=== PATIENT | female | born 1940 | race Caucasian/White ===

== ENCOUNTER 2016-07-03 17:28 | Emergency (ER) | payer MEDICARE, OTHER ==
[2016-07-03 18:18] LABS: ABSOLUTE EOSINOPHILS # (AUTO) 0.1 10^3/uL (0.0-0.6); ABSOLUTE LYMPHOCYTES (AUTO) 1.1 10^3/uL (0.5-4.7); ABSOLUTE MONOCYTES (AUTO) 0.5 10^3/uL (0.1-1.4); ABSOLUTE NEUT (AUTO) 6.7 10^3/uL (1.7-8.2); BASOPHILS % (AUTO) 0.3 % (0-2); EOSINOPHILS % (AUTO) 1.7 % (0-6); HEMOGLOBIN 11.7 g/dL (12.0-15.5); HGB HCT DIFFERENCE -1.9; LYMPHOCYTES % (AUTO) 13.5 % (13-45); MEAN CORPUSCULAR HEMOGLOBIN 29.2 pg (27.0-33.4); MEAN CORPUSCULAR HGB CONC 31.7 g/dL (32.0-36.0); MEAN CORPUSCULAR VOLUME 92 fl (80-97); MONOCYTES % (AUTO) 6.2 % (3-13); RED BLOOD COUNT 4.02 10^6/uL (3.72-5.28); RED CELL DISTRIBUTION WIDTH 14.7 % (11.5-14.0); SEGMENTED NEUTROPHILS % (AUTO) 78.3 % (42-78); WHITE BLOOD COUNT 8.5 10^3/uL (4.0-10.5)
[2016-07-03 18:46] LABS: ALANINE AMINOTRANSFERASE 25 U/L (9-52); ALBUMIN 3.8 g/dL (3.5-5.0); ALKALINE PHOSPHATASE 74 U/L (38-126); ANION GAP 11 (5-19); ASPARTATE AMINO TRANSFERASE 30 U/L (14-36); BILIRUBIN,TOTAL 0.8 mg/dL (0.2-1.3); BLOOD UREA NITROGEN 15 mg/dL (7-20); CALCIUM 9.1 mg/dL (8.4-10.2); CARBON DIOXIDE 26 mmol/L (22-30); CHLORIDE 104 mmol/L (98-107); CREATININE RESULT 0.73 mg/dL (0.52-1.25); GLUCOSE 115 mg/dL (75-110); POTASSIUM 3.9 mmol/L (3.6-5.0); TOTAL PROTEIN 6.3 g/dL (6.3-8.2)
--- NOTE | 2016-07-03 18:48 | ER Document Report ---
ED General - General Chief Complaint: Passed Out Prior to Arrival Stated Complaint: WEAKNESS Time seen by provider: 17:50 Mode of Arrival: Medic Information source: Relative, Friend Cannot obtain history due to: Dementia Notes: 76-year-old female resident of memory care unit at [facility] who is with daughter and friend at dinner and was witnessed to have an episode where she seemed to have some gurgling became pale and diaphoretic and unresponsive for a few months. Patient did not follow strike her head and after few seconds became alert and did not know what happened. Family reports that she is currently behaving at her baseline. They report that over the past several weeks she's had a decline in her level of interaction and has had some decrease in her appetite. They report that she would complain if she was having any pain and has had no such complaints. There are on she's had no fever, cough, shortness of breath, nausea, vomiting. Family reports that to their knowledge she's not had any surgeries and does not have any medical problems other than Alzheimer's Physical Exam: General: Alert, appears well. HEENT: Normocephalic. Atraumatic. PERRLA. Discs sharp Extraocular movements intact. Oropharynx clear. Membranes moist Neck: Supple. Non-tender. No JVD Respiratory: No respiratory distress. Clear and equal breath sounds bilaterally. Cardiovascular: Bradycardic and regular no murmur PMI not displaced. Abdominal: Normal Inspection. Soft, non-tender. No distension. Normal Bowel Sounds. Back: Non-tender. No deformity or step off. Extremities: Moves all four extremities. Upper extremities: Normal inspection. Non-tender. Normal color. Normal ROM. Normal temperature. Lower extremities: Normal inspection. Non-tender. No edema. Normal color. Normal ROM. Normal temperature. No Homans sign bilaterally Neurological: No cranial nerve deficits appreciated. Speech clear. Patient is oriented to person and place. Emergency Medicine Specialist strength 5 out of 5 equal both upper extremities motor function 5 out of 5 equal both lower extremities Psychological: Normal affect. Normal Mood. Pleasantly confused Skin: Warm. Dry. Normal color. Past Medical History - General Cannot obtain history due to: Dementia - Social History Smoking Status: Never Smoker Family History: Other - Dementia Review of Systems - Review of Systems Constitutional: No symptoms reported EENT: No symptoms reported Cardiovascular: Syncope Respiratory: Cough Gastrointestinal: denies: Nausea, Vomiting Genitourinary: Incontinence - With this episode tonight Musculoskeletal: No symptoms reported Hematologic/Lymphatic: No symptoms reported Neurological/Psychological: No symptoms reported Physical Exam - Vital signs Vitals: Temp Pulse Resp BP Pulse Ox 97.6 F 47 L 20 111/36 L 100 07/03/16 17:39 07/03/16 17:39 07/03/16 17:39 07/03/16 17:39 07/03/16 17:39 Course - Re-evaluation Re-evalutation: 07/03/16 19:28 Patient has remained asymptomatic during her stay in the emergency department. Her EKG shows a sinus bradycardia but believe this is physiologic and family reports that she is not on any medications. Daughter reports the patient has DO NOT RESUSCITATE status and in view of that and her dementia I do not believe that any further workup is warranted at this point. I find no evidence for aspiration with this episode. I discussed with family that I do not find a clear explanation for her syncopal episode but they're comfortable with stopping the workup at this point - Vital Signs Vital signs: Temp Pulse Resp BP Pulse Ox 97.6 F 47 L 19 111/36 L 99 07/03/16 17:39 07/03/16 17:39 07/03/16 19:01 07/03/16 17:39 07/03/16 19:01 - Laboratory Result Diagrams: 07/03/16 17:45 07/03/16 17:45 Laboratory results interpreted by me: 07/03/16 07/03/16 17:45 17:45 Hgb 11.7 L MCHC 31.7 L RDW 14.7 H Seg Neutrophils % 78.3 H Glucose 115 H - Diagnostic Test Radiology reviewed: Image reviewed, Reports reviewed - EKG Interpretation by Me Additional EKG results interpreted by me: 07/03/16 19:28 EKG reviewed, so shows sinus bradycardia at 48 with no acute changes Discharge - Discharge Clinical Impression: Syncope Qualifiers: Syncope type: unspecified Qualified Code(s): R55 - Syncope and collapse Dementia Qualifiers: Dementia type: unspecified type Condition: Stable Disposition: HOME-ASSISTED LIVING Additional Instructions: Syncopal Episode Syncope (fainting or near-fainting) can occur from many different health problems. Or it can be a simple fainting spell requiring no treatment. It is safe for you to go home, but further evaluation will likely be necessary. Your work-up may include tests for internal bleeding, heart disease, medication problems, or near-strokes. Tests are not always required, however, depending on the nature of your problem. The warning signs of an impending faint include: dizziness, lightheadedness , nausea, hot flashes, tingling, and weakness. If this happens, lay down and put your feet up, then wait until all of these symptoms have passed before standing up again. If these episodes become recurrent, or if you develop chest pain, heart palpitations, mental confusion, blurred vision, or headache, then you should call the physician, or go to the emergency room. Referrals: STU MICHAELS MD [COMMUNITY BASED STAFF] - Follow up in 1 week
[2016-07-03] MEDS ORDERED: HALOPERIDOL LACTATE INJ 5 MG/1 ML VIAL ONE (20:44)
[2016-07-03] MEDS ORDERED: DIPHENHYDRAMINE HCL 50 MG/ML VIAL ONE (20:45)
[2016-07-03 22:24] VITALS: BP 128/68
--- NOTE | 2016-07-04 08:13 | EKG REPORT ---
SEVERITY:- ABNORMAL ECG - SINUS BRADYCARDIA PROBABLE LEFT ATRIAL ABNORMALITY NONSPECIFIC T ABNORMALITIES, ANTERIOR LEADS : Confirmed by: Sergey Locke MD 04-Jul-2016 08:12:59
== END 2016-07-03 21:00 | disposition home health service (06) ==
LOC: ER 17:28
DX: R55 Syncope and collapse (principal); F03.90 Unspecified dementia, unspecified severity, without behavioral disturbance, psychotic disturbance, mood disturbance, and anxiety; R53.1 Weakness
CPT/HCPCS: 36415; 70450; 71010; 80053; 85025; 93005; 93010; 99285

== ENCOUNTER 2017-12-12 09:10 | Inpatient (IN) | payer MEDICARE ==
--- NOTE | 2017-12-12 10:07 | RADIOLOGY REPORT (SQ) ---
EXAM DESCRIPTION: CHEST SINGLE VIEW COMPLETED DATE/TIME: 12/12/2017 9:55 am REASON FOR STUDY: fefer COMPARISON: 07/03/2016 EXAM PARAMETERS: NUMBER OF VIEWS: One view. TECHNIQUE: Single frontal radiographic view of the chest acquired. RADIATION DOSE: NA LIMITATIONS: None. FINDINGS: LUNGS AND PLEURA: Minimal parenchymal opacity at the left base. Right lung is clear. MEDIASTINUM AND HILAR STRUCTURES: No masses. Contour normal. HEART AND VASCULAR STRUCTURES: Heart normal in size. Normal vasculature. BONES: No acute findings. HARDWARE: None in the chest. OTHER: No other significant finding. IMPRESSION: Left basilar pneumonitis. TECHNICAL DOCUMENTATION: JOB ID: [id number] [facility]- All Rights Reserved Reading location - IP/workstation name: [email or web address]
[2017-12-12] MEDS ORDERED: HALOPERIDOL LACTATE INJ 5 MG/1 ML VIAL IM ONE (10:09)
[2017-12-12] MEDS ORDERED: LORAZEPAM INJ 2 MG/1 ML VIAL IM ONE (11:01)
[2017-12-12 11:53] LABS: ABSOLUTE LYMPHOCYTES (AUTO) 0.8 10^3/uL (0.5-4.7); ABSOLUTE MONOCYTES (AUTO) 0.7 10^3/uL (0.1-1.4); ABSOLUTE NEUT (AUTO) 11.8 10^3/uL (1.7-8.2); BASOPHILS % (AUTO) 0.1 % (0-2); HEMATOCRIT 34.2 % (36.0-47.0); HEMOGLOBIN 11.6 g/dL (12.0-15.5); LYMPHOCYTES % (AUTO) 6.3 % (13-45); MEAN CORPUSCULAR HEMOGLOBIN 29.9 pg (27.0-33.4); MEAN CORPUSCULAR HGB CONC 33.9 g/dL (32.0-36.0); MEAN CORPUSCULAR VOLUME 88 fl (80-97); MONOCYTES % (AUTO) 5.4 % (3-13); PLATELET COUNT 183 10^3/uL (150-450); RED BLOOD COUNT 3.87 10^6/uL (3.72-5.28); RED CELL DISTRIBUTION WIDTH 14.4 % (11.5-14.0); SEGMENTED NEUTROPHILS % (AUTO) 88.2 % (42-78); TOTAL CELLS COUNTED % (AUTO) 100 %; WHITE BLOOD COUNT 13.3 10^3/uL (4.0-10.5)
[2017-12-12 11:56] LABS: VENOUS BLOOD BASE EXCESS 3.1 mmol/L; VENOUS BLOOD HCO3 28.9 mmol/L (20-32); VENOUS BLOOD PCO2 48.8 mmHg (35-63); VENOUS BLOOD PH 7.39 (7.30-7.42)
[2017-12-12 12:00] LABS: INTERNATIONAL RATION (INR) 1.54; PROTHROMBIN TIME 19.2 SEC (11.4-15.4)
[2017-12-12 12:10] LABS: ALANINE AMINOTRANSFERASE 30 U/L (9-52); ALBUMIN 3.1 g/dL (3.5-5.0); ALKALINE PHOSPHATASE 67 U/L (38-126); ANION GAP 12 (5-19); ASPARTATE AMINO TRANSFERASE 50 U/L (14-36); BILIRUBIN,DIRECT 0.3 mg/dL (0.0-0.4); BILIRUBIN,TOTAL 0.9 mg/dL (0.2-1.3); BLOOD UREA NITROGEN 23 mg/dL (7-20); CALCIUM 8.7 mg/dL (8.4-10.2); CARBON DIOXIDE 29 mmol/L (22-30); CHLORIDE 106 mmol/L (98-107); GLUCOSE 105 mg/dL (75-110); POTASSIUM 3.1 mmol/L (3.6-5.0); SODIUM 146.6 mmol/L (137-145); TOTAL PROTEIN 5.6 g/dL (6.3-8.2)
[2017-12-12] MEDS ORDERED: CEFTRIAXONE 1 GM/D5W RTU 1 GM/50 ML RTUPB IV ONE (12:18)
[2017-12-12 12:30] LABS: APPEARANCE,URINE SLIGHTLY-CLOUDY; BILIRUBIN,URINE NEGATIVE (NEGATIVE); COLOR,URINE AMBER; GLUCOSE, URINE 50 mg/dL (NEGATIVE); KETONES,URINE NEGATIVE (NEGATIVE); LEUKOCYTE ESTERASE,URINE TRACE (NEGATIVE); NITRITE,URINE POSITIVE (NEGATIVE); PROTEIN,URINE 100 mg/dL (NEGATIVE); URINE SPECIFIC GRAVITY 1.012
[2017-12-12] MEDS ORDERED: NORMAL SALINE 1000 ML 1,000 ML IV ONE (12:52)
--- NOTE | 2017-12-12 12:56 | ER Document Report ---
ED General - General Chief Complaint: Fever Stated Complaint: FEVER Time Seen by Provider: 12/12/17 09:23 TRAVEL OUTSIDE OF THE [place] IN LAST 30 DAYS: No - HPI Patient complains to provider of: Fever Notes: Patient coming in for evaluation of a fever. Patient resides a local skilled nursing also has a change in mental status mostly increased lethargy today. Patient has a history of severe dementia otherwise is noncontributory to her HPI. Family is at bedside mostly stating that unaware of the patient has had any cough nausea vomiting or diarrhea states patient family states that she does have a history of chronic leg swelling however has had some redness starting of the left lower leg recently. - Related Data Allergies/Adverse Reactions: Penicillins Allergy (Unknown, Verified 12/12/17 14:25) Past Medical History - Social History Smoking Status: Never Smoker Chew tobacco use (# tins/day): No Frequency of alcohol use: None Drug Abuse: None Family History: Other - Dementia Patient has suicidal ideation: No Patient has homicidal ideation: No - Past Medical History Cardiac Medical History: Reports: Hx Hypercholesterolemia, Hx Hypertension Renal/ Medical History: Denies: Hx Peritoneal Dialysis Review of Systems - Review of Systems -: Yes ROS unobtainable due to patient's medical condition - Dementia Physical Exam - Vital signs Vitals: Temp Resp BP Pulse Ox 100.0 F 33 H 122/89 H 80 L 12/12/17 09:26 12/12/17 09:26 12/12/17 09:26 12/12/17 09:26 Interpretation: Febrile - General General appearance: Appears well, Alert - HEENT Head: Normocephalic, Atraumatic Eyes: Normal Pupils: PERRL - Respiratory Respiratory status: No respiratory distress Breath sounds: Normal Chest palpation: Normal - Cardiovascular Rhythm: Regular Heart sounds: Normal auscultation Murmur: No - Abdominal Inspection: Normal Distension: No distension Bowel sounds: Normal Tenderness: Nontender Organomegaly: No organomegaly - Back Back: Normal, Nontender - Extremities General upper extremity: Normal inspection, Nontender, Normal color, Normal ROM , Normal temperature General lower extremity: Nontender, Edema, Normal color, Normal ROM, Normal temperature, Normal weight bearing. No: Normal inspection - Patient with 3+ 4+ pitting edema of both lower extremities with erythema redness from mid mcdaniel down to the ankle concerning for cellulitic process, Missy's sign - Neurological Neuro grossly intact: Yes Cognition: Normal Orientation: AAOx4 [place] Coma Scale Eye Opening: Spontaneous [place] Coma Scale Verbal: Oriented [place] Coma Scale Motor: Obeys Commands [place] Coma Scale Total: 15 Speech: Normal Motor strength normal: LUE, RUE, LLE, RLE Sensory: Normal - Psychological Associated symptoms: Normal affect, Normal mood - Skin Skin Temperature: Warm Skin Moisture: Dry Skin Color: Normal Course - Re-evaluation Re-evalutation: 12/12/17 16:31 Patient with leukocytosis and urinary infection explaining the fever and altered mental state. Patient chest x-ray was read as a pneumonitis however my comparison physical examination is not consistent with any. Patient was given a dose of Rocephin for UTI possibly developing cellulitis of the left lower extremity. For her to the hospitalist for further evaluation and management - Vital Signs Vital signs: Temp Pulse Resp BP Pulse Ox 97.5 F 82 18 119/45 L 92 12/12/17 14:40 12/12/17 14:40 12/12/17 14:40 12/12/17 14:40 12/12/17 14:40 - Laboratory Result Diagrams: 12/12/17 11:31 12/12/17 11:31 Laboratory results interpreted by me: 12/12/17 12/12/17 12/12/17 11:31 11:31 11:31 WBC 13.3 H Hgb 11.6 L Hct 34.2 L RDW 14.4 H Seg Neutrophils % 88.2 H Lymphocytes % 6.3 L Absolute Neutrophils 11.8 H PT 19.2 H Sodium 146.6 H Potassium 3.1 L BUN 23 H Lactic Acid AST 50 H Total Protein 5.6 L Albumin 3.1 L Urine Protein Urine Glucose (UA) Urine Blood Urine Nitrite Urine Urobilinogen Ur Leukocyte Esterase 12/12/17 12/12/17 11:31 12:09 WBC Hgb Hct RDW Seg Neutrophils % Lymphocytes % Absolute Neutrophils PT Sodium Potassium BUN Lactic Acid 2.5 H AST Total Protein Albumin Urine Protein 100 H Urine Glucose (UA) 50 H Urine Blood SMALL H Urine Nitrite POSITIVE H Urine Urobilinogen 2.0 H Ur Leukocyte Esterase TRACE H Discharge - Discharge Clinical Impression: Fever, Cellulitis, Peripheral edema, Encephalopathy, Dementia UTI (urinary tract infection) Qualifiers: Urinary tract infection type: acute cystitis Hematuria presence: without hematuria Qualified Code(s): N30.00 - Acute cystitis without hematuria Condition: Good Disposition: ADMITTED INPATIENT Admitting Provider: Hospitalist - [facility] Unit Admitted: Medical Floor
[2017-12-12] MEDS ORDERED: RINGERS SOLUTION,LACTATED 1,000 ML IV PRN (13:18)
[2017-12-12] MEDS ORDERED: LORAZEPAM 0.5 MG TABLET PO PRN (13:30)
--- NOTE | 2017-12-12 13:41 | PDOC H&P ---
History of Present Illness Admission Date/PCP: 12/12/17 13:22 History of Present Illness: ARASELI BARBA is a 77 year old female with dementia who is a long-term care resident at a snf facility. She was sent here today by the snf facility with a chief complaint of fever. Patient is very demented and is unable to provide any further history. It is unknown if there are any other symptoms present. Apparently she had a temperature of 102.4 Fahrenheit and got some Tylenol for that brought her fever down. She was observed in the emergency department and it looks like she had a positive urinalysis indicative of an infection. There is also report that she possibly has some pneumonia on chest x-ray but there were no reports of any cough or chest congestion. She has chronic venous stasis and has taken Lasix and recently had her dose increased according to reports, but she also has some redness in the left foot is not equal on the right without any signs of any exudates. Past Medical History Cardiac Medical History: Reports: Hyperlipidema, Hypertension Social History Information Source: [facility] Records Lives with: [facility] Smoking Status: Never Smoker Family History Family History: Other - Dementia, unable to obtain Parental Family History Reviewed: No - Unable to obtain Children Family History Reviewed: No - Unable to obtain Sibling(s) Family History Reviewed.: No - Unable to obtain Medication/Allergy Home Medications: Atorvastatin Calcium 10 mg PO DAILY 12/12/17 Furosemide [Lasix 20 mg Tablet] 20 mg PO WSUPPER 12/12/17 Furosemide [Lasix] 40 mg PO [id number] 12/12/17 Lorazepam [Ativan 0.5 mg Tablet] 0.5 mg PO Q8 PRN 12/12/17 Multivit-Min/Iron/Folic/Lutein [Centrum Silver Women Tablet] 1 each PO DAILY Risperidone [Risperdal] 0.5 mg PO PCSUPPER 12/12/17 Sertraline HCl 25 mg PO DAILY 12/12/17 Review of Systems ROS unobtainable: Due to mental status Physical Exam Vital Signs: Temp Pulse Resp BP Pulse Ox 98.0 F 24 H 103/49 L 93 12/12/17 12:01 12/12/17 13:01 12/12/17 13:00 12/12/17 13:01 General appearance: PRESENT: no acute distress, disheveled, well-developed, well -nourished, other - She had just gotten some Haldol because apparently she has been combative so she did not wake up, but I was told that she would not of been able to answer questions anyway Head exam: PRESENT: atraumatic, normocephalic Eye exam: PRESENT: conjunctiva pink. ABSENT: periorbital swelling Ear exam: PRESENT: normal external ear exam Mouth exam: PRESENT: dry mucosa, neck supple Teeth exam: PRESENT: poor dentation Neck exam: ABSENT: carotid bruit, JVD, lymphadenopathy, thyromegaly Respiratory exam: PRESENT: clear to auscultation neri. ABSENT: rales, rhonchi, wheezes Cardiovascular exam: PRESENT: RRR. ABSENT: diastolic murmur, rubs, systolic murmur Pulses: PRESENT: normal carotid pulses, normal radial pulses Vascular exam: PRESENT: normal capillary refill GI/Abdominal exam: PRESENT: normal bowel sounds, soft. ABSENT: distended, guarding, mass, organolmegaly, rebound, tenderness Extremities exam: PRESENT: pedal edema - Trace nonpitting, +1 edema, other - Evidence of chronic venous stasis changes bilaterally, some redness on the left foot not found over there on the right. ABSENT: clubbing Neurological exam: PRESENT: altered, other - asleep Skin exam: PRESENT: dry, warm Results Laboratory Results: Reviewed Impressions: Chest X-Ray 12/12/17 09:24 IMPRESSION: Left basilar pneumonitis. Assessment & Plan - Diagnosis (1) Sepsis Qualifiers: Sepsis type: sepsis due to unspecified organism Qualified Code(s): A41.9 - Sepsis, unspecified organism Is this a current diagnosis for this admission?: Yes Plan: She is getting some IV fluids and antibiotics. Cultures are pending. Likely due to urinary tract infection. She could potentially have a left foot cellulitis, but the erythema on the skin does not feel particularly much warmer than the surrounding tissue. Breath sounds are clear. (2) UTI (urinary tract infection) Qualifiers: Urinary tract infection type: acute cystitis Hematuria presence: without hematuria Qualified Code(s): N30.00 - Acute cystitis without hematuria Is this a current diagnosis for this admission?: Yes Plan: She is on Rocephin. Urine cultures and blood cultures are pending. - Time Time Spent: 50 to 70 Minutes Medications reviewed and adjusted accordingly: Yes
[2017-12-12] MEDS ORDERED: ENOXAPARIN SODIUM INJ 40 MG/0.4 ML DISP.SYRIN SUBCUT ONE (15:00)
[2017-12-12] MEDS: POTASSI CL 20 MEQ/50 ML RIDER 20 MEQ/50 ML RTUPB IV SCH ×2 (15:11→16:54)
[2017-12-12] MEDS ORDERED: SERTRALINE HCL 50 MG TABLET PO ONE (15:30)
[2017-12-12] MEDS ORDERED: MULTIVIT-STRESS FORMULA/ZINC TABLET PO ONE (15:30)
[2017-12-12] MEDS ORDERED: (PENDING PHARMACY ID) (Risperidone [Risperdal] 0.5 MG) PO SCH (18:00)
[2017-12-12] MEDS: RISPERIDONE 1 MG TABLET PO SCH (21:15)
--- NOTE | 2017-12-12 23:00 | EKG REPORT ---
SEVERITY:- ABNORMAL ECG - SINUS RHYTHM NONSPECIFIC INTRAVENTRICULAR CONDUCTION DELAY : Confirmed by: Joan Crocker MD 12-Dec-2017 22:59:41
[2017-12-12] MEDS: LORAZEPAM 0.5 MG TABLET PO PRN (23:44)
[2017-12-13 05:59] LABS: HEMATOCRIT 32.8 % (36.0-47.0); MEAN CORPUSCULAR HGB CONC 33.6 g/dL (32.0-36.0); MEAN CORPUSCULAR VOLUME 89 fl (80-97); PLATELET COUNT 171 10^3/uL (150-450); RED BLOOD COUNT 3.67 10^6/uL (3.72-5.28); RED CELL DISTRIBUTION WIDTH 14.3 % (11.5-14.0); WHITE BLOOD COUNT 11.7 10^3/uL (4.0-10.5)
[2017-12-13 06:19] LABS: ANION GAP 8 (5-19); BLOOD UREA NITROGEN 20 mg/dL (7-20); CALCIUM 8.2 mg/dL (8.4-10.2); CARBON DIOXIDE 27 mmol/L (22-30); CHLORIDE 109 mmol/L (98-107); GLUCOSE 96 mg/dL (75-110); POTASSIUM 3.2 mmol/L (3.6-5.0); SODIUM 143.8 mmol/L (137-145)
[2017-12-13] MEDS ORDERED: CEFTRIAXONE INJ 1000 MG VIAL IV SCH (08:00)
[2017-12-13] MEDS: SERTRALINE HCL 50 MG TABLET PO SCH (09:33)
[2017-12-13] MEDS: MULTIVIT-STRESS FORMULA/ZINC TABLET PO SCH (09:33)
[2017-12-13] MEDS: ENOXAPARIN SODIUM INJ 40 MG/0.4 ML DISP.SYRIN SUBCUT SCH (09:33)
[2017-12-13] MEDS: ATORVASTATIN CALCIUM 10 MG TABLET PO SCH (09:33)
[2017-12-13] MEDS: LORAZEPAM 0.5 MG TABLET PO PRN (09:44)
[2017-12-13] MEDS ORDERED: (PENDING PHARMACY ID) (Multivit-Min/Iron/Folic/Lutein [Centrum Silver Women Tablet] 1 EACH PO SCH (10:00)
[2017-12-13] MEDS ORDERED: (PENDING PHARMACY ID) (Sertraline Hcl [Sertraline Hcl] 25 MG) PO SCH (10:00)
[2017-12-13] MEDS: POTASSI CL 20 MEQ/50 ML RIDER 20 MEQ/50 ML RTUPB IV SCH ×2 (10:52→13:19)
--- NOTE | 2017-12-13 18:05 | PDOC PROGRESS REPORT ---
Subjective Progress Note for:: 12/13/17 Subjective:: No adverse events overnight. She was a little bit hostile this morning and she remains in restraints. This is the least restrictive method to ensure her safety and we will endeavor to remove the restraints as soon as it is safe for her to do so. Her daughter is in the room and she is much more easily redirected by her daughter. She has been afebrile. Reason For Visit: SEPSIS UTI Physical Exam Vital Signs: Temp Pulse Resp BP Pulse Ox 97.5 F 70 18 127/66 H 90 L 12/13/17 17:00 12/13/17 17:00 12/13/17 17:00 12/13/17 17:00 12/13/17 17:00 Intake & Output 12/12/17 12/13/17 12/14/17 06:59 06:59 06:59 Intake Total 1583 Balance 1583 Weight 68.1 kg General appearance: PRESENT: no acute distress, disheveled, well-developed, well -nourished Respiratory exam: PRESENT: clear to auscultation neri. ABSENT: rales, rhonchi, wheezes Cardiovascular exam: PRESENT: RRR. ABSENT: diastolic murmur, rubs, systolic murmur GI/Abdominal exam: PRESENT: normal bowel sounds, soft. ABSENT: distended, guarding, mass, organolmegaly, rebound, tenderness Extremities exam: PRESENT: other - She has some nonpitting edema which is chronic. There is no more erythema on her left foot and the skin is the same temperature on both feet.. ABSENT: clubbing, pedal edema Neurological exam: PRESENT: alert, awake. ABSENT: oriented to person, oriented to place, oriented to time, oriented to situation Skin exam: PRESENT: dry, warm Results Laboratory Results: 12/13/17 05:21 12/13/17 05:21 12/13/17 12/13/17 05:21 05:21 WBC 11.7 H RBC 3.67 L Hgb 11.0 L Hct 32.8 L MCV 89 MCH 30.0 MCHC 33.6 RDW 14.3 H Plt Count 171 Sodium 143.8 Potassium 3.2 L Chloride 109 H Carbon Dioxide 27 Anion Gap 8 BUN 20 Creatinine 0.74 Est GFR ( Amer) > 60 Est GFR (Non-Af Amer) > 60 Glucose 96 Calcium 8.2 L Impressions: Chest X-Ray 12/12/17 09:24 IMPRESSION: Left basilar pneumonitis. Assessment & Plan - Diagnosis (1) Sepsis Qualifiers: Sepsis type: sepsis due to unspecified organism Qualified Code(s): A41.9 - Sepsis, unspecified organism Is this a current diagnosis for this admission?: Yes Plan: She got IV fluids and she is on IV antibiotics. Urine cultures pending. This is thought to be due to UTI. (2) UTI (urinary tract infection) Qualifiers: Urinary tract infection type: acute cystitis Hematuria presence: without hematuria Qualified Code(s): N30.00 - Acute cystitis without hematuria Is this a current diagnosis for this admission?: Yes Plan: She is on Rocephin. Urine cultures and blood cultures are pending. - Time Time Spent with patient: 25-34 minutes Medications reviewed and adjusted accordingly: Yes
[2017-12-13] MEDS: RISPERIDONE 1 MG TABLET PO SCH (21:09)
[2017-12-14 07:15] LABS: HEMATOCRIT 36.3 % (36.0-47.0); HEMOGLOBIN 12.2 g/dL (12.0-15.5); MEAN CORPUSCULAR HEMOGLOBIN 29.6 pg (27.0-33.4); MEAN CORPUSCULAR HGB CONC 33.7 g/dL (32.0-36.0); MEAN CORPUSCULAR VOLUME 88 fl (80-97); PLATELET COUNT 191 10^3/uL (150-450); RED BLOOD COUNT 4.13 10^6/uL (3.72-5.28); WHITE BLOOD COUNT 9.9 10^3/uL (4.0-10.5)
[2017-12-14 07:35] LABS: ANION GAP 11 (5-19); BLOOD UREA NITROGEN 15 mg/dL (7-20); CALCIUM 8.3 mg/dL (8.4-10.2); CARBON DIOXIDE 25 mmol/L (22-30); CHLORIDE 108 mmol/L (98-107); GLUCOSE 94 mg/dL (75-110); POTASSIUM 3.3 mmol/L (3.6-5.0); SODIUM 143.5 mmol/L (137-145)
[2017-12-14] MEDS: MULTIVIT-STRESS FORMULA/ZINC TABLET PO SCH (10:50)
[2017-12-14] MEDS: ENOXAPARIN SODIUM INJ 40 MG/0.4 ML DISP.SYRIN SUBCUT SCH (10:50)
[2017-12-14] MEDS: ATORVASTATIN CALCIUM 10 MG TABLET PO SCH (10:50)
[2017-12-14] MEDS: SERTRALINE HCL 50 MG TABLET PO SCH (10:50)
[2017-12-14] MEDS ORDERED: LEVOFLOXACIN 750 MG TABLET PO ONE (13:00)
--- NOTE | 2017-12-14 18:30 | PDOC PROGRESS REPORT ---
Subjective Progress Note for:: 12/14/17 Subjective:: She is much more awake and alert today. She was talkative and initially very agitated and said a couple of harsh things, but when I left the room she thanked me for all I have been doing for her. She did not punch or kick at me. She took some of her pills with some chocolate ice cream today. Reason For Visit: SEPSIS UTI Physical Exam Vital Signs: Temp Pulse Resp BP Pulse Ox 97.3 F 68 20 136/64 H 94 12/14/17 15:21 12/14/17 15:21 12/14/17 15:21 12/14/17 15:21 12/14/17 15:21 Intake & Output 12/13/17 12/14/17 12/15/17 06:59 06:59 06:59 Intake Total 1583 2452 Balance 1583 2452 Weight 68.1 kg 68.3 kg General appearance: PRESENT: no acute distress, disheveled, well-developed, well -nourished Teeth exam: PRESENT: poor dentation Respiratory exam: PRESENT: clear to auscultation neri. ABSENT: rales, rhonchi, wheezes Cardiovascular exam: PRESENT: RRR, +S1, +S2. ABSENT: bradycardia Vascular exam: PRESENT: normal capillary refill GI/Abdominal exam: PRESENT: normal bowel sounds, soft. ABSENT: distended, guarding, mass, organolmegaly, rebound, tenderness Extremities exam: ABSENT: clubbing, pedal edema Neurological exam: PRESENT: alert, awake Results Laboratory Results: 12/14/17 06:06 12/14/17 06:06 12/14/17 12/14/17 06:06 06:06 WBC 9.9 RBC 4.13 Hgb 12.2 Hct 36.3 MCV 88 MCH 29.6 MCHC 33.7 RDW 14.0 Plt Count 191 Sodium 143.5 Potassium 3.3 L Chloride 108 H Carbon Dioxide 25 Anion Gap 11 BUN 15 Creatinine 0.55 Est GFR ( Amer) > 60 Est GFR (Non-Af Amer) > 60 Glucose 94 Calcium 8.3 L Impressions: Chest X-Ray 12/12/17 09:24 IMPRESSION: Left basilar pneumonitis. Assessment & Plan - Diagnosis (1) Sepsis Qualifiers: Sepsis type: sepsis due to unspecified organism Qualified Code(s): A41.9 - Sepsis, unspecified organism Is this a current diagnosis for this admission?: Yes Plan: She got IV fluids and she is on IV antibiotics. Urine culture shows a pansensitive E. coli. We will switch her to an oral antibiotic. (2) UTI (urinary tract infection) Qualifiers: Urinary tract infection type: acute cystitis Hematuria presence: without hematuria Qualified Code(s): N30.00 - Acute cystitis without hematuria Is this a current diagnosis for this admission?: Yes Plan: And sensitive E. coli. We will put her on Levaquin because it is once a day and this should be easier to get into her rather than a medication that requires multiple administrations per day. - Time Time Spent with patient: 25-34 minutes Medications reviewed and adjusted accordingly: Yes
[2017-12-14] MEDS: RISPERIDONE 1 MG TABLET PO SCH (22:35)
[2017-12-15 07:25] LABS: HEMOGLOBIN 12.2 g/dL (12.0-15.5); MEAN CORPUSCULAR HEMOGLOBIN 30.3 pg (27.0-33.4); MEAN CORPUSCULAR VOLUME 87 fl (80-97); PLATELET COUNT 236 10^3/uL (150-450); RED BLOOD COUNT 4.04 10^6/uL (3.72-5.28); RED CELL DISTRIBUTION WIDTH 14.2 % (11.5-14.0); WHITE BLOOD COUNT 8.2 10^3/uL (4.0-10.5)
[2017-12-15 07:54] LABS: ANION GAP 10 (5-19); BLOOD UREA NITROGEN 13 mg/dL (7-20); CALCIUM 8.1 mg/dL (8.4-10.2); CARBON DIOXIDE 25 mmol/L (22-30); CHLORIDE 108 mmol/L (98-107); GLUCOSE 86 mg/dL (75-110); POTASSIUM 3.1 mmol/L (3.6-5.0); SODIUM 143.2 mmol/L (137-145)
[2017-12-15] MEDS ORDERED: POTASSIUM CHLORIDE 10 MEQ CAPSULE.ER PO SCH (10:00)
[2017-12-15] MEDS: SERTRALINE HCL 50 MG TABLET PO SCH (10:35)
[2017-12-15] MEDS: LEVOFLOXACIN 750 MG TABLET PO SCH (10:45)
[2017-12-15] MEDS: ENOXAPARIN SODIUM INJ 40 MG/0.4 ML DISP.SYRIN SUBCUT SCH (10:45)
[2017-12-15] MEDS: MULTIVIT-STRESS FORMULA/ZINC TABLET PO SCH (10:45)
[2017-12-15] MEDS: POTASSIUM CHLORIDE 20 MEQ/15 ML UDCUP PO SCH ×2 (14:39→22:24)
--- NOTE | 2017-12-15 17:50 | PDOC PROGRESS REPORT ---
Subjective Progress Note for:: 12/15/17 Subjective:: No adverse events overnight. She had to be put back in restraints because she had a little aggressive overnight. She has been put on oral antibiotics and her IV has been removed. She does much better for her daughter when her daughter is here with her. We have been able to get medications into her with chocolate ice cream. Vital signs been stable. Reason For Visit: SEPSIS UTI Physical Exam Vital Signs: Temp Pulse Resp BP Pulse Ox 98.2 F 80 20 132/51 H 100 12/15/17 16:00 12/15/17 16:00 12/15/17 16:00 12/15/17 16:00 12/15/17 16:00 Intake & Output 12/14/17 12/15/17 12/16/17 06:59 06:59 06:59 Intake Total 2452 1789 Balance 2452 1789 Weight 68.3 kg 69.2 kg General appearance: PRESENT: no acute distress, disheveled, well-developed, well -nourished Teeth exam: PRESENT: poor dentation Respiratory exam: PRESENT: clear to auscultation neri. ABSENT: rales, rhonchi, wheezes Cardiovascular exam: PRESENT: RRR. ABSENT: diastolic murmur, rubs, systolic murmur Vascular exam: PRESENT: normal capillary refill GI/Abdominal exam: PRESENT: normal bowel sounds, soft. ABSENT: distended, guarding, mass, organolmegaly, rebound, tenderness Extremities exam: ABSENT: clubbing, pedal edema Musculoskeletal exam: PRESENT: normal inspection. ABSENT: deformity Neurological exam: PRESENT: awake. ABSENT: oriented to person, oriented to place, oriented to time, oriented to situation Results Laboratory Results: 12/15/17 07:14 12/15/17 07:14 12/15/17 12/15/17 07:14 07:14 WBC 8.2 RBC 4.04 Hgb 12.2 Hct 35.0 L MCV 87 MCH 30.3 MCHC 35.0 RDW 14.2 H Plt Count 236 Sodium 143.2 Potassium 3.1 L Chloride 108 H Carbon Dioxide 25 Anion Gap 10 BUN 13 Creatinine 0.58 Est GFR ( Amer) > 60 Est GFR (Non-Af Amer) > 60 Glucose 86 Calcium 8.1 L Impressions: Chest X-Ray 12/12/17 09:24 IMPRESSION: Left basilar pneumonitis. Assessment & Plan - Diagnosis (1) Sepsis Qualifiers: Sepsis type: sepsis due to unspecified organism Qualified Code(s): A41.9 - Sepsis, unspecified organism Is this a current diagnosis for this admission?: Yes Plan: Resolved. Will order a physical therapy evaluation to assess her mobility and case she would need to go to a long-term facility prior to returning to her assisted living facility. (2) UTI (urinary tract infection) Qualifiers: Urinary tract infection type: acute cystitis Hematuria presence: without hematuria Qualified Code(s): N30.00 - Acute cystitis without hematuria Is this a current diagnosis for this admission?: Yes Plan: Wynn-sensitive E. coli. We will put her on Levaquin because it is once a day and this should be easier to get into her rather than a medication that requires multiple administrations per day. - Time Time Spent with patient: 25-34 minutes Medications reviewed and adjusted accordingly: Yes
[2017-12-15] MEDS: RISPERIDONE 1 MG TABLET PO SCH (22:24)
[2017-12-15] MEDS: ATORVASTATIN CALCIUM 10 MG TABLET PO SCH (22:24)
[2017-12-16] MEDS: ENOXAPARIN SODIUM INJ 40 MG/0.4 ML DISP.SYRIN SUBCUT SCH (10:07)
[2017-12-16] MEDS: POTASSIUM CHLORIDE 20 MEQ/15 ML UDCUP PO SCH ×2 (10:08→22:08)
[2017-12-16] MEDS: SERTRALINE HCL 50 MG TABLET PO SCH (10:08)
[2017-12-16] MEDS: LEVOFLOXACIN 750 MG TABLET PO SCH (10:08)
[2017-12-16] MEDS: MULTIVIT-STRESS FORMULA/ZINC TABLET PO SCH (10:08)
--- NOTE | 2017-12-16 16:16 | PDOC PROGRESS REPORT ---
Subjective Progress Note for:: 12/16/17 Subjective:: She was seen in her room deny any new symptoms. She is however confused but appears to be comfortable Reason For Visit: SEPSIS UTI Physical Exam Vital Signs: Temp Pulse Resp BP Pulse Ox 98.2 F 63 22 H 134/56 H 91 L 12/16/17 08:25 12/16/17 14:00 12/16/17 08:25 12/16/17 08:25 12/16/17 08:25 Intake & Output 12/15/17 12/16/17 12/17/17 06:59 06:59 06:59 Intake Total 1789 110 Output Total 200 Balance 1789 -90 Weight 69.2 kg 77.8 kg General appearance: PRESENT: no acute distress, well-developed, well-nourished Neck exam: ABSENT: carotid bruit, JVD, lymphadenopathy, thyromegaly Respiratory exam: PRESENT: clear to auscultation neri. ABSENT: rales, rhonchi, wheezes Cardiovascular exam: PRESENT: RRR. ABSENT: diastolic murmur, rubs, systolic murmur GI/Abdominal exam: PRESENT: normal bowel sounds, soft. ABSENT: distended, guarding, mass, organolmegaly, rebound, tenderness Rectal exam: PRESENT: deferred Neurological exam: PRESENT: alert, awake, other - confused Results Laboratory Results: 12/15/17 07:14 12/15/17 07:14 Impressions: Chest X-Ray 12/12/17 09:24 IMPRESSION: Left basilar pneumonitis. Assessment & Plan - Time Time Spent with patient: 15-24 minutes Medications reviewed and adjusted accordingly: Yes Anticipated discharge: SNF Within: within 72 hours - Inpatient Certification Based on my medical assessment, after consideration of the patient's comorbidities, presenting symptoms, or acuity I expect that the services needed warrant INPATIENT care.: Yes Medical Necessity: Significant Comorbidiites Make Outpatient Treatment Too Risky , Risk of Complication if Not Cared For in Hospital - Plan Summary Plan Summary: Sepsis resolved 2. Urinary tract infection secondary to E. coli she is currently on oral Levaquin 3. Plan is for rehab at discharge once she is medically stable
[2017-12-16] MEDS: RISPERIDONE 1 MG TABLET PO SCH (22:07)
[2017-12-16] MEDS: ATORVASTATIN CALCIUM 10 MG TABLET PO SCH (22:08)
[2017-12-17] MEDS: MULTIVIT-STRESS FORMULA/ZINC TABLET PO SCH (09:53)
[2017-12-17] MEDS: ENOXAPARIN SODIUM INJ 40 MG/0.4 ML DISP.SYRIN SUBCUT SCH (09:53)
[2017-12-17] MEDS: POTASSIUM CHLORIDE 20 MEQ/15 ML UDCUP PO SCH ×2 (09:53→21:13)
[2017-12-17] MEDS: SERTRALINE HCL 50 MG TABLET PO SCH (09:53)
[2017-12-17] MEDS: LEVOFLOXACIN 750 MG TABLET PO SCH (09:54)
--- NOTE | 2017-12-17 13:43 | PDOC PROGRESS REPORT ---
Subjective Progress Note for:: 12/17/17 Subjective:: She was seen in her room with her daughter at bedside and extensive discussions had with the daughter. It is still in soft restraints as she was still trying to get out of bed and was agitated last night. This is to be re-evaluated for discontinuation today. Her appetite remains pretty poor. Nutrition evaluation will be obtained. Still waiting for physical therapy evaluation also. Patient was admitted from an assisted living facility but at this point she appears to be deconditioned she will need to go to rehab hopefully before going back to assisted living Reason For Visit: SEPSIS UTI Physical Exam Vital Signs: Temp Pulse Resp BP Pulse Ox 98.5 F 70 36 H 134/79 H 94 12/17/17 08:09 12/17/17 08:09 12/17/17 08:09 12/17/17 08:09 12/17/17 08:09 Intake & Output 12/16/17 12/17/17 12/18/17 06:59 06:59 06:59 Intake Total 110 160 Output Total 200 Balance -90 160 Weight 77.8 kg 78.381 kg General appearance: PRESENT: no acute distress, hard of hearing Head exam: PRESENT: atraumatic Mouth exam: PRESENT: dry mucosa Teeth exam: PRESENT: poor dentation Neck exam: ABSENT: carotid bruit, JVD, lymphadenopathy, thyromegaly Respiratory exam: PRESENT: clear to auscultation neri. ABSENT: rales, rhonchi, wheezes Cardiovascular exam: PRESENT: RRR. ABSENT: diastolic murmur, rubs, systolic murmur Pulses: PRESENT: normal dorsalis pedis pul GI/Abdominal exam: PRESENT: normal bowel sounds, soft. ABSENT: distended, guarding, mass, organolmegaly, rebound, tenderness Rectal exam: PRESENT: deferred Extremities exam: PRESENT: +1 edema Neurological exam: PRESENT: alert, awake, other - Confused but pleasant. ABSENT : oriented to person, oriented to place, oriented to time, oriented to situation Results Laboratory Results: 12/15/17 07:14 12/15/17 07:14 Impressions: Chest X-Ray 12/12/17 09:24 IMPRESSION: Left basilar pneumonitis. Assessment & Plan - Time Time Spent with patient: 25-34 minutes - Extensive discussion with daughter Medications reviewed and adjusted accordingly: Yes Anticipated discharge: SNF Within: within 48 hours - Inpatient Certification Based on my medical assessment, after consideration of the patient's comorbidities, presenting symptoms, or acuity I expect that the services needed warrant INPATIENT care.: Yes Medical Necessity: Significant Comorbidiites Make Outpatient Treatment Too Risky , Risk of Complication if Not Cared For in Hospital - Plan Summary Plan Summary: 1. Sepsis resolved 2. Urinary tract infection secondary to E. coli currently on oral Levaquin 3. Plan is for rehab at discharge once she is medically stable. Will obtain PT eval 4.Underlying severe dementia- supportive measures 5. Anorexia- Dietitian consult
[2017-12-17] MEDS: ATORVASTATIN CALCIUM 10 MG TABLET PO SCH (21:13)
[2017-12-17] MEDS: RISPERIDONE 1 MG TABLET PO SCH (21:13)
[2017-12-18 04:38] LABS: ABSOLUTE MONOCYTES (AUTO) 0.6 10^3/uL (0.1-1.4); BASOPHILS % (AUTO) 0.7 % (0-2); EOSINOPHILS % (AUTO) 0.6 % (0-6); HEMATOCRIT 33.8 % (36.0-47.0); HEMOGLOBIN 11.7 g/dL (12.0-15.5); LYMPHOCYTES % (AUTO) 15.2 % (13-45); MEAN CORPUSCULAR HGB CONC 34.6 g/dL (32.0-36.0); MEAN CORPUSCULAR VOLUME 87 fl (80-97); MONOCYTES % (AUTO) 9.2 % (3-13); PLATELET COUNT 279 10^3/uL (150-450); RED BLOOD COUNT 3.89 10^6/uL (3.72-5.28); RED CELL DISTRIBUTION WIDTH 14.3 % (11.5-14.0); SEGMENTED NEUTROPHILS % (AUTO) 74.3 % (42-78); TOTAL CELLS COUNTED % (AUTO) 100 %; WHITE BLOOD COUNT 6.8 10^3/uL (4.0-10.5)
[2017-12-18 04:57] LABS: ANION GAP 10 (5-19); BLOOD UREA NITROGEN 15 mg/dL (7-20); CALCIUM 8.5 mg/dL (8.4-10.2); CARBON DIOXIDE 26 mmol/L (22-30); CHLORIDE 112 mmol/L (98-107); GLUCOSE 103 mg/dL (75-110); SODIUM 147.5 mmol/L (137-145)
[2017-12-18] MEDS: ENOXAPARIN SODIUM INJ 40 MG/0.4 ML DISP.SYRIN SUBCUT SCH (12:40)
[2017-12-18] MEDS: SERTRALINE HCL 50 MG TABLET PO SCH (12:40)
[2017-12-18] MEDS: POTASSIUM CHLORIDE 20 MEQ/15 ML UDCUP PO SCH ×2 (12:42→21:18)
[2017-12-18] MEDS: MULTIVIT-STRESS FORMULA/ZINC TABLET PO SCH (12:42)
[2017-12-18] MEDS: LEVOFLOXACIN 750 MG TABLET PO SCH (12:42)
--- NOTE | 2017-12-18 17:06 | PDOC PROGRESS REPORT ---
Subjective Progress Note for:: 12/18/17 Subjective:: She was seen in her room with her daughter at bedside and extensive discussions had with the daughter. It is still in soft restraints as she was still trying to get out of bed and was agitated last night. This is to be re-evaluated for discontinuation today. Her appetite remains pretty poor. Nutrition evaluation will be obtained. Still waiting for physical therapy evaluation also. Patient was admitted from an assisted living facility but at this point she appears to be deconditioned she will need to go to rehab hopefully before going back to assisted living although unless she shows remarkable improvement she may need to transition to NH I discussed extensively with her daughter and she was updated on patient's condition. Lately she is sleeping although easily arousable but not participating in any conversations. Patient is not eating or drinking and she refused to get a physical therapy and attempts to ambulate her yesterday. Reason For Visit: SEPSIS UTI Physical Exam Vital Signs: Temp Pulse Resp BP Pulse Ox 99.1 F 71 20 143/57 H 94 12/18/17 11:12 12/18/17 14:00 12/18/17 11:12 12/18/17 11:12 12/18/17 11:12 Intake & Output 12/17/17 12/18/17 12/19/17 06:59 06:59 06:59 Intake Total 160 346 Balance 160 346 Weight 78.381 kg 76.9 kg General appearance: PRESENT: no acute distress, well-developed, other - Sleeping but easily arousable Head exam: PRESENT: atraumatic, normocephalic Eye exam: PRESENT: conjunctiva pink. ABSENT: scleral icterus Ear exam: PRESENT: normal external ear exam Mouth exam: PRESENT: dry mucosa Neck exam: ABSENT: carotid bruit, JVD, lymphadenopathy, thyromegaly Respiratory exam: PRESENT: clear to auscultation neri. ABSENT: rales, rhonchi, wheezes Cardiovascular exam: PRESENT: RRR. ABSENT: diastolic murmur, rubs, systolic murmur Pulses: PRESENT: normal dorsalis pedis pul Vascular exam: PRESENT: normal capillary refill GI/Abdominal exam: PRESENT: normal bowel sounds, soft. ABSENT: distended, guarding, mass, organolmegaly, rebound, tenderness Rectal exam: PRESENT: deferred Extremities exam: PRESENT: +1 edema. ABSENT: calf tenderness, clubbing, pedal edema Neurological exam: PRESENT: other - Minimal verbal input. ABSENT: motor sensory deficit Psychiatric exam: PRESENT: appropriate affect, normal mood. ABSENT: homicidal ideation, suicidal ideation Skin exam: PRESENT: dry, intact, warm. ABSENT: cyanosis, rash Results Laboratory Results: 12/18/17 04:04 12/18/17 04:04 12/18/17 12/18/17 04:04 04:04 WBC 6.8 RBC 3.89 Hgb 11.7 L Hct 33.8 L MCV 87 MCH 30.0 MCHC 34.6 RDW 14.3 H Plt Count 279 Seg Neutrophils % 74.3 Lymphocytes % 15.2 Monocytes % 9.2 Eosinophils % 0.6 Basophils % 0.7 Absolute Neutrophils 5.0 Absolute Lymphocytes 1.0 Absolute Monocytes 0.6 Absolute Eosinophils 0.0 Absolute Basophils 0.0 Sodium 147.5 H Potassium 4.0 Chloride 112 H Carbon Dioxide 26 Anion Gap 10 BUN 15 Creatinine 0.56 Est GFR ( Amer) > 60 Est GFR (Non-Af Amer) > 60 Glucose 103 Calcium 8.5 Impressions: Chest X-Ray 12/12/17 09:24 IMPRESSION: Left basilar pneumonitis. Assessment & Plan - Time Time Spent with patient: 25-34 minutes Medications reviewed and adjusted accordingly: Yes Anticipated discharge: Acute Rehab Within: within 72 hours - Inpatient Certification Based on my medical assessment, after consideration of the patient's comorbidities, presenting symptoms, or acuity I expect that the services needed warrant INPATIENT care.: Yes Medical Necessity: Need For IV Fluids - Plan Summary Plan Summary: 1. Sepsis resolved 2. Urinary tract infection secondary to E. coli currently on oral Levaquin 3. Plan is for rehab at discharge once she is medically stable. D/w Carriage Setter obtain PT eval 4.Underlying severe dementia- supportive measures 5. Anorexia- Dietitian consult
[2017-12-18] MEDS: RISPERIDONE 1 MG TABLET PO SCH (21:18)
[2017-12-18] MEDS: ATORVASTATIN CALCIUM 10 MG TABLET PO SCH (21:18)
[2017-12-19] MEDS: DEXTROSE 5%-1/2 NORMAL SALINE 1,000 ML IV PRN (04:58)
[2017-12-19] MEDS: POTASSIUM CHLORIDE 20 MEQ/15 ML UDCUP PO SCH ×2 (10:10→21:12)
[2017-12-19] MEDS: ENOXAPARIN SODIUM INJ 40 MG/0.4 ML DISP.SYRIN SUBCUT SCH (10:10)
[2017-12-19] MEDS: LEVOFLOXACIN 750 MG TABLET PO SCH (10:10)
[2017-12-19] MEDS: SERTRALINE HCL 50 MG TABLET PO SCH (10:10)
[2017-12-19] MEDS: MULTIVIT-STRESS FORMULA/ZINC TABLET PO SCH (10:10)
[2017-12-19] MEDS: ATORVASTATIN CALCIUM 10 MG TABLET PO SCH (21:12)
[2017-12-19] MEDS: RISPERIDONE 1 MG TABLET PO SCH (21:12)
[2017-12-20] MEDS: SERTRALINE HCL 50 MG TABLET PO SCH (11:22)
[2017-12-20] MEDS: MULTIVIT-STRESS FORMULA/ZINC TABLET PO SCH (11:22)
[2017-12-20] MEDS: LEVOFLOXACIN 750 MG TABLET PO SCH (11:22)
[2017-12-20] MEDS: ENOXAPARIN SODIUM INJ 40 MG/0.4 ML DISP.SYRIN SUBCUT SCH (11:23)
[2017-12-20] MEDS: POTASSIUM CHLORIDE 20 MEQ/15 ML UDCUP PO SCH ×2 (11:23→21:25)
--- NOTE | 2017-12-20 15:37 | PDOC PROGRESS REPORT ---
Subjective Progress Note for:: 12/19/17 Subjective:: She was seen in her room with her daughter at bedside and extensive discussions had with the daughter. It is still in soft restraints as she was still trying to get out of bed and was agitated last night. This is to be re-evaluated for discontinuation today. Her appetite remains pretty poor. Nutrition evaluation will be obtained. Still waiting for physical therapy evaluation also. Patient was admitted from an assisted living facility but at this point she appears to be deconditioned she will need to go to rehab hopefully before going back to assisted living although unless she shows remarkable improvement she may need to transition to NH Reason For Visit: SEPSIS UTI Physical Exam Vital Signs: Temp Pulse Resp BP Pulse Ox 98.8 F 70 20 111/46 L 94 12/20/17 11:04 12/20/17 14:00 12/20/17 11:04 12/20/17 11:04 12/20/17 11:04 Intake & Output 12/19/17 12/20/17 12/21/17 06:59 06:59 06:59 Intake Total 6 220 Output Total 200 Balance 2046 20 Weight 77.2 kg 75.3 kg General appearance: PRESENT: no acute distress, other - Sleeping arousable Mouth exam: PRESENT: dry mucosa Respiratory exam: PRESENT: clear to auscultation neri Cardiovascular exam: PRESENT: RRR. ABSENT: diastolic murmur, rubs, systolic murmur Pulses: PRESENT: normal dorsalis pedis pul GI/Abdominal exam: PRESENT: normal bowel sounds, soft. ABSENT: distended, guarding, mass, organolmegaly, rebound, tenderness Rectal exam: PRESENT: deferred Musculoskeletal exam: ABSENT: ambulatory Neurological exam: PRESENT: other - Confused. ABSENT: oriented to person, oriented to place, oriented to time, oriented to situation Results Laboratory Results: 12/18/17 04:04 12/18/17 04:04 Impressions: Chest X-Ray 12/12/17 09:24 IMPRESSION: Left basilar pneumonitis. Assessment & Plan - Time Time Spent with patient: 15-24 minutes Medications reviewed and adjusted accordingly: Yes Anticipated discharge: SNF Within: within 48 hours - Inpatient Certification Based on my medical assessment, after consideration of the patient's comorbidities, presenting symptoms, or acuity I expect that the services needed warrant INPATIENT care.: Yes Medical Necessity: Other - Awaiting safe discharge - Plan Summary Plan Summary: 1. Sepsis resolved 2. Urinary tract infection secondary to E. coli currently on oral Levaquin 3. Plan is for rehab at discharge once she is medically stable. 4. Severe dementia this seems to be progressive and I am not sure that she will be able to regain her prior functional level 5. Anorexia- Dietitian consult
--- NOTE | 2017-12-20 16:06 | PDOC PROGRESS REPORT ---
Subjective Progress Note for:: 12/20/17 Subjective:: She was seen in her room with her daughter at bedside and extensive discussions had with the daughter. It is still in soft restraints as she was still trying to get out of bed and was agitated last night. This is to be re-evaluated for discontinuation today. Her appetite remains pretty poor. Nutrition evaluation will be obtained. Still waiting for physical therapy evaluation also. Patient was admitted from an assisted living facility but at this point she appears to be deconditioned she will need to go to rehab hopefully before going back to assisted living although unless she shows remarkable improvement she may need to transition to NH. I discussed with her daughter again and brought her up-to-date. Patient is medically stable at this time and once residential is available she can be discharged for rehab. I believe very much doubt that this patient will make any unremarkable meaningful recovery and she may need to transition to residential full-time Reason For Visit: SEPSIS UTI Physical Exam Vital Signs: Temp Pulse Resp BP Pulse Ox 98.8 F 70 20 111/46 L 94 12/20/17 11:04 12/20/17 14:00 12/20/17 11:04 12/20/17 11:04 12/20/17 11:04 Intake & Output 12/19/17 12/20/17 12/21/17 06:59 06:59 06:59 Intake Total 2046 220 Output Total 200 Balance 2046 20 Weight 77.2 kg 75.3 kg Results Laboratory Results: 12/18/17 04:04 12/18/17 04:04 Impressions: Chest X-Ray 12/12/17 09:24 IMPRESSION: Left basilar pneumonitis. Assessment & Plan - Plan Summary Plan Summary: 1. Sepsis resolved 2. Urinary tract infection secondary to E. coli currently on oral Levaquin 3. Plan is for rehab at discharge once bed available. 4.Underlying severe dementia- supportive measures 5. Anorexia- Encourage feeding
[2017-12-20] MEDS: RISPERIDONE 1 MG TABLET PO SCH (21:24)
[2017-12-20] MEDS: ATORVASTATIN CALCIUM 10 MG TABLET PO SCH (21:24)
[2017-12-21] MEDS: POTASSIUM CHLORIDE 20 MEQ/15 ML UDCUP PO SCH ×2 (11:48→22:28)
[2017-12-21] MEDS: MULTIVIT-STRESS FORMULA/ZINC TABLET PO SCH (11:52)
[2017-12-21] MEDS: SERTRALINE HCL 50 MG TABLET PO SCH (11:53)
[2017-12-21] MEDS: LEVOFLOXACIN 750 MG TABLET PO SCH (11:53)
[2017-12-21] MEDS: ENOXAPARIN SODIUM INJ 40 MG/0.4 ML DISP.SYRIN SUBCUT SCH (11:53)
--- NOTE | 2017-12-21 12:38 | PDOC PROGRESS REPORT ---
Subjective Progress Note for:: 12/21/17 Subjective:: She was seen in her room with her daughter at bedside and extensive discussions had with the daughter. Her appetite remains pretty poor. Still waiting for physical therapy evaluation also. Patient was admitted from an assisted living facility but at this point she appears to be deconditioned she will need to go to rehab hopefully before going back to assisted living although unless she shows remarkable improvement she may need to transition to NH. I discussed with her daughter again and brought her up-to-date. Patient is medically stable at this time and once [facility] is available she can be discharged for rehab. I very much doubt that this patient will make any unremarkable meaningful recovery and she may need to transition to [facility] full-time. Her condition remains the same Reason For Visit: SEPSIS UTI Physical Exam Vital Signs: Temp Pulse Resp BP Pulse Ox 97.9 F 62 14 122/73 94 12/21/17 03:41 12/21/17 07:00 12/21/17 03:41 12/21/17 03:41 12/21/17 03:41 Intake & Output 12/20/17 12/21/17 12/22/17 06:59 06:59 06:59 Intake Total 220 2540 Output Total 200 Balance 20 2540 Weight 75.3 kg 74.9 kg General appearance: PRESENT: no acute distress Head exam: PRESENT: atraumatic, normocephalic Eye exam: PRESENT: conjunctiva pink, EOMI, PERRLA. ABSENT: scleral icterus Ear exam: PRESENT: normal external ear exam Mouth exam: PRESENT: dry mucosa, tongue midline Neck exam: ABSENT: carotid bruit, JVD, lymphadenopathy, thyromegaly Respiratory exam: PRESENT: clear to auscultation neri. ABSENT: rales, rhonchi, wheezes Cardiovascular exam: PRESENT: RRR. ABSENT: diastolic murmur, rubs, systolic murmur Pulses: PRESENT: normal dorsalis pedis pul Vascular exam: PRESENT: normal capillary refill GI/Abdominal exam: PRESENT: normal bowel sounds, soft. ABSENT: distended, guarding, mass, organolmegaly, rebound, tenderness Rectal exam: PRESENT: deferred Extremities exam: PRESENT: full ROM, +1 edema. ABSENT: calf tenderness, clubbing, pedal edema Neurological exam: PRESENT: alert, awake, other - Confused. ABSENT: motor sensory deficit Skin exam: PRESENT: dry, intact, warm. ABSENT: cyanosis, rash Results Laboratory Results: 12/18/17 04:04 12/18/17 04:04 Impressions: Chest X-Ray 12/12/17 09:24 IMPRESSION: Left basilar pneumonitis. Assessment & Plan - Time Time Spent with patient: 15-24 minutes Medications reviewed and adjusted accordingly: Yes Anticipated discharge: Acute Rehab Within: when bed available - Plan Summary Plan Summary: 1. Sepsis resolved 2. Urinary tract infection secondary to E. coli currently on oral Levaquin through December 22 3. Plan is for rehab at discharge once bed available. 4.Underlying severe dementia- supportive measures 5. Anorexia- Encourage feeding next 6. Physical deconditioning plan is for rehab
[2017-12-21] MEDS: RISPERIDONE 1 MG TABLET PO SCH (22:28)
[2017-12-21] MEDS: ATORVASTATIN CALCIUM 10 MG TABLET PO SCH (22:28)
[2017-12-22] MEDS: MEGESTROL ACETATE SUSP 400 MG/10 ML UDCUP PO SCH ×2 (12:24→20:00)
[2017-12-22] MEDS: SERTRALINE HCL 50 MG TABLET PO SCH (12:24)
[2017-12-22] MEDS: POTASSIUM CHLORIDE 20 MEQ/15 ML UDCUP PO SCH ×2 (12:25→21:44)
[2017-12-22] MEDS: MULTIVIT-STRESS FORMULA/ZINC TABLET PO SCH (12:25)
[2017-12-22] MEDS: ENOXAPARIN SODIUM INJ 40 MG/0.4 ML DISP.SYRIN SUBCUT SCH (12:26)
--- NOTE | 2017-12-22 13:57 | PDOC PROGRESS REPORT ---
Subjective Progress Note for:: 12/22/17 Subjective:: She was seen in her room with her daughter at bedside and extensive discussions had with the daughter. Her appetite remains pretty poor. Still waiting for physical therapy evaluation also. Patient was admitted from an assisted living facility but at this point she appears to be deconditioned she will need to go to rehab hopefully before going back to assisted living although unless she shows remarkable improvement she may need to transition to NH. I discussed with her daughter again and brought her up-to-date. Patient is medically stable at this time and once correction is available she can be discharged for rehab. I very much doubt that this patient will make any unremarkable meaningful recovery and she may need to transition to correction full-time. Her condition remains the same She was evaluated by the nursing home[facility] Nurse today and we are waiting for feedback from them. Reason For Visit: SEPSIS UTI Physical Exam Vital Signs: Temp Pulse Resp BP Pulse Ox 97.9 F 63 18 119/46 L 95 12/22/17 04:00 12/22/17 11:14 12/22/17 11:14 12/22/17 11:14 12/22/17 04:00 Intake & Output 12/21/17 12/22/17 12/23/17 06:59 06:59 06:59 Intake Total 2540 2073 Balance 2540 2073 Weight 74.9 kg 72.8 kg General appearance: PRESENT: no acute distress, well-developed Head exam: PRESENT: atraumatic, normocephalic Eye exam: PRESENT: conjunctiva pink, EOMI, PERRLA. ABSENT: scleral icterus Ear exam: PRESENT: normal external ear exam Mouth exam: PRESENT: moist, tongue midline Neck exam: ABSENT: carotid bruit, JVD, lymphadenopathy, thyromegaly Respiratory exam: PRESENT: clear to auscultation neri. ABSENT: rales, rhonchi, wheezes Cardiovascular exam: PRESENT: RRR. ABSENT: diastolic murmur, rubs, systolic murmur Pulses: PRESENT: normal dorsalis pedis pul Vascular exam: PRESENT: normal capillary refill GI/Abdominal exam: PRESENT: normal bowel sounds, soft. ABSENT: distended, guarding, mass, organolmegaly, rebound, tenderness Rectal exam: PRESENT: deferred Extremities exam: ABSENT: calf tenderness, clubbing, pedal edema Musculoskeletal exam: PRESENT: ambulatory - Has not ambulated since admission Neurological exam: PRESENT: alert, awake. ABSENT: oriented to place, oriented to situation, motor sensory deficit Psychiatric exam: PRESENT: suicidal ideation. ABSENT: homicidal ideation Skin exam: PRESENT: dry, intact, warm. ABSENT: cyanosis, rash Results Laboratory Results: 12/18/17 04:04 12/18/17 04:04 Impressions: Chest X-Ray 12/12/17 09:24 IMPRESSION: Left basilar pneumonitis. Assessment & Plan - Time Time Spent with patient: 15-24 minutes Medications reviewed and adjusted accordingly: Yes Anticipated discharge: Acute Rehab Within: when bed available - Inpatient Certification Based on my medical assessment, after consideration of the patient's comorbidities, presenting symptoms, or acuity I expect that the services needed warrant INPATIENT care.: Yes Medical Necessity: Need For IV Fluids - Plan Summary Plan Summary: 1.Sepsis resolved 2. Urinary tract infection secondary to E. coli currently on oral Levaquin through December 22 3. Plan is for rehab at discharge once bed available. 4.Underlying severe dementia- supportive measures 5. Anorexia- Encourage feeding 6. Physical deconditioning plan is for rehab. Awaiting SD evaluation by Facilities
[2017-12-22] MEDS: RISPERIDONE 1 MG TABLET PO SCH (21:44)
[2017-12-22] MEDS: ATORVASTATIN CALCIUM 10 MG TABLET PO SCH (21:44)
[2017-12-23] MEDS: DEXTROSE 5%-1/2 NORMAL SALINE 1,000 ML IV PRN (05:29)
[2017-12-23] MEDS: POTASSIUM CHLORIDE 20 MEQ/15 ML UDCUP PO SCH (12:20)
[2017-12-23] MEDS: SERTRALINE HCL 50 MG TABLET PO SCH (12:20)
[2017-12-23] MEDS: MULTIVIT-STRESS FORMULA/ZINC TABLET PO SCH (12:20)
[2017-12-23] MEDS: ENOXAPARIN SODIUM INJ 40 MG/0.4 ML DISP.SYRIN SUBCUT SCH (12:24)
[2017-12-23] MEDS: MEGESTROL ACETATE SUSP 400 MG/10 ML UDCUP PO SCH ×2 (12:25→17:52)
--- NOTE | 2017-12-23 14:23 | PDOC DISCHARGE SUMMARY ---
General - Admit/Disc Date/PCP Admission Date/Primary Care Provider: 12/12/17 13:22 Discharge Date: 12/23/17 - Discharge Diagnosis (1) UTI (urinary tract infection) Is this a current diagnosis for this admission?: Yes (2) Dementia Is this a current diagnosis for this admission?: Yes (3) Encephalopathy Is this a current diagnosis for this admission?: Yes Summary: Secondary to acute infection, resolved (4) Hypokalemia Is this a current diagnosis for this admission?: Yes - Additional Information Resuscitation Status: Do Not Resuscitate Discharge Activity: Activity As Tolerated Home Medications: Atorvastatin Calcium 10 mg PO QHS 12/12/17 Furosemide [Lasix] 40 mg PO [id number] 12/12/17 Multivit-Min/Iron/Folic/Lutein [Centrum Silver Women Tablet] 1 each PO DAILY Risperidone [Risperdal] 0.5 mg PO QHS 12/12/17 Sertraline HCl 25 mg PO DAILY 12/12/17 Megestrol Acetate [Megace Salud 400 mg/10 ml Udcup] 400 mg PO BID@0800,1600 udc 12/23/17 History of Present Illness History of Present Illness: ARASELI BARBA is a 77 year old female with dementia who is a long-term care resident at a long term facility. She was sent here today by the long term facility with a chief complaint of fever. Patient is very demented and is unable to provide any further history. It is unknown if there are any other symptoms present. Apparently she had a temperature of 102.4 Fahrenheit and got some Tylenol for that brought her fever down. She was observed in the emergency department and it looks like she had a positive urinalysis indicative of an infection. There is also report that she possibly has some pneumonia on chest x-ray but there were no reports of any cough or chest congestion. She has chronic venous stasis and has taken Lasix and recently had her dose increased according to reports, but she also has some redness in the left foot is not equal on the right without any signs of any exudates. Hospital Course Hospital Course: Patient was admitted with fever and found to have a urinary tract infection secondary to E. coli. Was also found to have a left basilar pneumonitis on chest x-ray. Initial white count was elevated although patient remained afebrile throughout her hospital stay. She was treated with Levaquin and completed a course of antibiotics today. Patient has history of dementia and this appeared to have worsened somehow while she was in hospital prolonging her hospital stay. Her appetite is somewhat poor and so she was started on Megace. Unfortunately due to the prolonged hospitalization patient appears to be deconditioned and she will need to acute rehabilitation and then reassessment after that. She has remained hemodynamically stable albeit confused She was thought to be septic on initial presentation although patient is not hypotensive nor febrile not tachycardic on initial presentation. She did have infection including UTI, possible pneumonitis and questionable cellulitis although clinically this is also unclear. Based on my chart review as sepsis has been ruled out. Patient is a DO NOT RESUSCITATE. Physical Exam Vital Signs: Temp Pulse Resp BP Pulse Ox 98.5 F 69 17 135/48 H 97 12/23/17 11:16 12/23/17 11:16 12/23/17 11:16 12/23/17 11:16 12/23/17 11:16 Intake & Output 12/22/17 12/23/17 12/24/17 06:59 06:59 06:59 Intake Total 2073 2309 Balance 2073 2309 Weight 72.8 kg 72.6 kg General appearance: PRESENT: no acute distress, well-developed, well-nourished Head exam: PRESENT: atraumatic, normocephalic Eye exam: PRESENT: conjunctiva pink, EOMI, PERRLA. ABSENT: scleral icterus Ear exam: PRESENT: normal external ear exam Mouth exam: PRESENT: dry mucosa, moist, tongue midline Neck exam: ABSENT: carotid bruit, JVD, lymphadenopathy, thyromegaly Respiratory exam: PRESENT: clear to auscultation neri. ABSENT: rales, rhonchi, wheezes Cardiovascular exam: PRESENT: RRR. ABSENT: diastolic murmur, rubs, systolic murmur Pulses: PRESENT: normal dorsalis pedis pul Vascular exam: PRESENT: normal capillary refill GI/Abdominal exam: PRESENT: normal bowel sounds, soft. ABSENT: distended, guarding, mass, organolmegaly, rebound, tenderness Rectal exam: PRESENT: deferred Extremities exam: PRESENT: full ROM, other - Chronic venostasis bilaterally. ABSENT: calf tenderness, clubbing, pedal edema Neurological exam: PRESENT: alert, awake. ABSENT: motor sensory deficit Psychiatric exam: PRESENT: normal mood Skin exam: PRESENT: dry, intact, warm. ABSENT: cyanosis, rash Results Laboratory Results: 12/18/17 04:04 12/18/17 04:04 Impressions: Chest X-Ray 12/12/17 09:24 IMPRESSION: Left basilar pneumonitis. Qualifiers - * PATIENT BEING DISCHARGED WITH ANY OF THE FOLLOWING DIAGNOSIS: No Plan Discharge Plan: Patient is been discharged to alf in stable condition. Time Spent: Greater than 30 Minutes
[2017-12-23 16:15] VITALS: BP 113/45
== END 2017-12-23 17:52 | DRG 871 ==
LOC: ER 09:10 → UNDOADMIN 13:22 → EH 13:22 → 5 14:35
PROVIDERS: ADMIT Internal Medicine; ATTEND Internal Medicine
DX: A41.9 Sepsis, unspecified organism (principal); E11.10 Type 2 diabetes mellitus with ketoacidosis without coma; J18.9 Pneumonia, unspecified organism; N30.00 Acute cystitis without hematuria; F02.81 Dementia in other diseases classified elsewhere, unspecified severity, with behavioral disturbance; F05 Delirium due to known physiological condition; F03.90 Unspecified dementia, unspecified severity, without behavioral disturbance, psychotic disturbance, mood disturbance, and anxiety; G30.9 Alzheimer's disease, unspecified; Z78.1 Physical restraint status; Z66 Do not resuscitate; E87.6 Hypokalemia; I87.8 Other specified disorders of veins; B96.20 Unspecified Escherichia coli [E. coli] as the cause of diseases classified elsewhere; E78.00 Pure hypercholesterolemia, unspecified; I10 Essential (primary) hypertension; E78.2 Mixed hyperlipidemia; R63.0 Anorexia; Z68.24 Body mass index [BMI] 24.0-24.9, adult; Z79.899 Other long term (current) drug therapy; Z88.0 Allergy status to penicillin; Z81.8 Family history of other mental and behavioral disorders
CPT/HCPCS: 36415; 51701; 71045; 80048; 80053; 81001; 82803; 83605; 85025; 85027; 85610; 87040; 87086; 87088; 87186; 93005; 93010; 96365; 96372; 99285; G8978-GP; G8979-GP; J0696; J1630; J1650; J2060; J3480; J3490; J7030